=== PATIENT | female | born 2000 | race Caucasian/White ===

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

== ENCOUNTER 2021-11-23 01:09 | Emergency (ER) | payer OTHER ==
[~2021-11-23 01:09] MED LIST changes: +CYCLOBENZAPRINE5 MG PO; +IBUPROFEN800 MG PO
[2021-11-23 03:53] LABS: HEMOGLOBIN 13.3 gm/dl (12.3-15.3); RED BLOOD COUNT 4.59 M/UL (4.00-5.10); WHITE BLOOD COUNT 8.6 K/UL (4.5-11.0)
[2021-11-23 04:13] LABS: BUN/CREATININE RATIO 10 (0-10)
== END 2021-11-23 11:40 | disposition home or self-care (01) ==
LOC: ER1 01:09
PROVIDERS: Emergency Medicine
DX: O20.9 Hemorrhage in early pregnancy, unspecified (principal); O99.891 Other specified diseases and conditions complicating pregnancy; R11.0 Nausea; Z3A.01 Less than 8 weeks gestation of pregnancy
CPT/HCPCS: 76801; 80053; 81001; 84702; 85025; 86900; 86901; 99284